=== PATIENT | male | born 1975 | race Asian ===

== ENCOUNTER 2019-07-14 11:04 | Emergency (ER) | payer OTHER ==
[~2019-07-14] VITALS: Ht 172.7 cm; Wt 64.4 kg
== END 2019-07-14 16:14 | disposition home or self-care (01) ==
LOC: ER 11:04
DX: S60.221A Contusion of right hand, initial encounter (principal); W22.8XXA Striking against or struck by other objects, initial encounter; Y93.89 Activity, other specified; Y92.89 Other specified places as the place of occurrence of the external cause; Y99.8 Other external cause status